=== PATIENT | female | born 1985 | race African-American/Black ===

== ENCOUNTER 2018-09-07 08:46 | Emergency (ER) | payer OTHER ==
[~2018-09-07] VITALS: Ht 180.3 cm; Wt 93.9 kg
[2018-09-07 08:58] VITALS: BP 151/106
--- NOTE | 2018-09-07 09:03 | NUR ---
patient presented to the ER c/o left foot pain worst today, tripped and fall, fracture left foot. On room air, breathing evenly and unlabored. Kept comfortable, dr. josue at bedside for eval. Will continue to monitor accordingly.
[2018-09-07] MEDS ORDERED: HYDROCODONE/APAP 5/325MG 1 EACH TABLET ONE (09:16)
[2018-09-07] MEDS ORDERED: HYDROCODONE/APAP 10/325MG 1 EA TABLET ONE (09:20)
--- NOTE | 2018-09-07 09:23 | NUR ---
Patient discharged to home in stable condition. Written and verbal after care instructions given. Patient verbalizes understanding of instruction.
[2018-09-07] MEDS ORDERED: HYDROCODONE/APAP 10/325MG 1 EA TABLET PO ONE (09:30)
== END 2018-09-07 09:23 | disposition home or self-care (01) ==
LOC: ER 08:46
DX: S92.352A Displaced fracture of fifth metatarsal bone, left foot, initial encounter for closed fracture (principal); M79.7 Fibromyalgia; W01.0XXA Fall on same level from slipping, tripping and stumbling without subsequent striking against object, initial encounter; Y93.89 Activity, other specified; Y92.89 Other specified places as the place of occurrence of the external cause; Y99.8 Other external cause status

== ENCOUNTER 2018-10-15 07:24 | Emergency (ER) | payer OTHER ==
[~2018-10-15] VITALS: Ht 180.3 cm; Wt 83.9 kg
--- NOTE | 2018-10-15 07:30 | NUR ---
BIBSELF C/O RIGHT SIDE ABDOMINAL PAIN X3 WEEK. RECENTLY FINISHED 5 DAY MACROBID X2 WEEKS. +NAUSEA, +DYSURIA, -DIARRHEA, -FEVER, TO ER BED 10, HOOKED TO MONITOR, CHANGED TO GOWN, PROVIDED W WARM BLANKET, AWAITING MD NUNEZ.
--- NOTE | 2018-10-15 07:30 | NUR ---
URINE COLLECTED AND SENT TO LAB
--- NOTE | 2018-10-15 07:38 | NUR ---
DR LEIVA AT BEDSIDE
[2018-10-15 07:53] LABS: BASOPHILS # (AUTO) 0.1 /CMM (0.0-0.2); BASOPHILS % (AUTO) 1.3 % (0.0-2.0); EOSINOPHILS % (AUTO) 3.9 % (0.0-6.0); HEMATOCRIT 36 % (33-45); HEMOGLOBIN 11.5 g/dL (11.5-14.8); LYMPHOCYTES % (AUTO) 29.3 % (20.0-44.0); MEAN CORPUSCULAR HGB CONC 32 g/dl (31.0-36.0); MEAN CORPUSCULAR VOLUME 73 fL (82-100); MONOCYTES # (AUTO) 0.6 /CMM (0.1-1.30); MONOCYTES % (AUTO) 5.5 % (2.0-12.0); NEUTROPHILS # (AUTO) 6.1 /CMM (1.8-8.9); PLATELET COUNT (AUTO) 383 /CMM (150-450); RED BLOOD CELL COUNT(AUTO) 4.95 MIL/uL (4.0-5.2); WHITE BLOOD COUNT (AUTO) 10.2 K/uL (4.3-11.0)
[2018-10-15 07:59] LABS: APPEARANCE,URINE Clear (CLEAR); BILIRUBIN,URINE Negative (NEGATIVE); BLOOD, URINE Negative Ery/uL (NEGATIVE); KETONES,URINE Negative (NEGATIVE); LEUKOCYTE ESTERASE ,URINE Negative (NEGATIVE); NITRITE, URINE Negative (NEGATIVE); PROTEIN,URINE Negative (NEGATIVE); UGLUCOSE Negative (NEGATIVE); UROBILINOGEN,URINE 0.2 EU/dL (0.2)
[2018-10-15] MEDS ORDERED: IV NS 0.9% 1,000 ML BAG IV ONE (08:00)
[2018-10-15 08:02] LABS: CALCIUM, SERUM 9.1 mg/dL (8.5-10.1); CREATININE 0.9 mg/dL (0.6-1.3); POTASSIUM 4.1 mmol/L (3.5-5.1)
[2018-10-15 08:03] LABS: COLOR,URINE Light Yellow (YELLOW)
[2018-10-15 08:07] LABS: BILIRUBIN,DIRECT 0.1 mg/dL (0.0-0.2); BILIRUBIN,TOTAL 0.5 mg/dL (0.2-1.0)
[2018-10-15] MEDS ORDERED: MORPHINE SULFATE INJ 4 MG/ML DISP.SYRIN ONE (08:55)
[2018-10-15] MEDS ORDERED: ONDANSETRON HCL/PF 4 MG/2 ML VIAL ONE (08:55)
[2018-10-15] MEDS ORDERED: ONDANSETRON HCL/PF 4 MG/2 ML VIAL IVP ONE (09:00)
[2018-10-15] MEDS ORDERED: MORPHINE SULFATE INJ 2 MG/ML DISP.SYRIN IV ONE (09:00)
--- NOTE | 2018-10-15 09:58 | NUR ---
IV removed. Catheter intact and site benign. Pressure and 4x4 applied to site. No bleeding noted.Patient discharged to home in stable condition. Written and verbal after care instructions given. Patient verbalizes understanding of instruction.
[2018-10-15 09:59] VITALS: BP 143/87
== END 2018-10-15 10:00 | disposition home or self-care (01) ==
LOC: ER 07:24
DX: R10.31 Right lower quadrant pain (principal); M79.7 Fibromyalgia
CPT/HCPCS: 36415; 74176; 80048; 80076; 81001; 83690; 84702; 84703; 85025; 85730; 96374; 96375; 99284; J2270; J2405; J7030; 81000-TC